=== PATIENT | male | born 1985 | race Caucasian/White ===

== ENCOUNTER 2018-03-15 18:00 | Emergency (ER) | payer BC ==
[2018-03-15 18:13] VITALS: BP 133/86
[2018-03-15] MEDS ORDERED: Ibuprofen 600 MG Tab PO ONE (19:20)
[2018-03-15] MEDS ORDERED: Acetaminophen/oxyCODONE 325-5 MG Tab PO ONE (19:20)
[2018-03-15] MEDS ORDERED: Ondansetron 4 MG Tab.DIS PO ONE (19:21)
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
--- NOTE | 2018-03-16 13:27 | CR ---
Chest and left ribs: Frontal view of the chest was obtained as well as three views of the left ribs. Comparison: No previous study. Heart size and mediastinum are within normal limits. Lungs are clear. No discrete fracture or other left-sided rib abnormality is appreciated. Impression: 1. No discrete left-sided rib abnormalities appreciated. Nothing acute is seen on the accompanying chest x-ray. Diagnostic code #2
== END 2018-03-15 20:27 | disposition home or self-care (01) ==
LOC: JD.ED 18:00
DX: S29.012A Strain of muscle and tendon of back wall of thorax, initial encounter (principal); S20.212A Contusion of left front wall of thorax, initial encounter; S80.02XA Contusion of left knee, initial encounter; S80.01XA Contusion of right knee, initial encounter; W18.00XA Striking against unspecified object with subsequent fall, initial encounter; Y93.89 Activity, other specified
CPT/HCPCS: 71101; 99283; A9270; 99284